=== PATIENT | male | born 1990 | race Caucasian/White ===

== ENCOUNTER 2021-01-25 13:01 | Emergency (ER) | payer SELFPAY ==
[2021-01-25] MEDS ORDERED: IBUPROFEN600 MG PO (14:13)
[2021-01-25] MEDS ORDERED: CLEOCIN HCL300 MG PO (14:13)
[2021-01-25] MEDS ORDERED: BACTROBAN OINT22 GM EXT (14:13)
== END 2021-01-25 14:28 | disposition home or self-care (01) ==
LOC: ER1 13:01
DX: L02.416 Cutaneous abscess of left lower limb (principal); L03.116 Cellulitis of left lower limb
CPT/HCPCS: 99282